=== PATIENT | female | born 1965 | race Hispanic/Latino ===

== ENCOUNTER 2019-03-25 12:26 | Outpatient (CLI) | payer OTHER ==
--- NOTE | 2019-03-26 10:52 | Mammography Report ---
BILATERAL DIGITAL DIAGNOSTIC MAMMOGRAM WITH CAD -- 03/25/2019 LEFT COMPLETE BREAST ULTRASOUND INDICATION: Left breast pain. TECHNIQUE: Digital bilateral mammographic imaging was performed. Spot compression views were obtaine d. Complete ultrasound of all four (4) quadrants was performed. This examination was interpreted with the benefit of Computer-Aided Detection (CAD) analysis. COMPARISON: 10/07/2015 bilateral screening mammogram FINDINGS: Breast Density: The breasts are heterogeneously dense, which may obscure small masses. MAMMOGRAPHIC FINDINGS: There is no evidence of dominant mass, suspicious calcifications or architectu ral distortion in either breast. ULTRASOUND FINDINGS: Complete sonographic evaluation of all 4 quadrants and retroareolar region was p erformed. Ultrasound demonstrated no mass, cyst or shadowing. IMPRESSION: Negative bilateral mammogram and negative left breast ultrasound. No explanation for left breast pain. Follow up recommendation: Routine yearly BI-RADS Category 1: Negative. A "normal" or negative report should not discourage follow up or biopsy of a clinically significant f inding. A written summary of these findings will be mailed to the patient. The patient will be entered into a mammography reporting system which will generate a reminder letter for the patient's next appointmen t at the appropriate interval. According to the [employer], yearly mammograms are recommended starting at age 40 and continuing as long as a woman is in good health. Breast MRI is recommended for women with an randi roximately 20-25% or greater lifetime risk of breast cancer, including women with a strong family his tory of breast or ovarian cancer and women who have been treated for Hodgkin's disease. Signer Name: Arnold Gallardo MD Signed: 03/26/2019 10:47 AM Workstation Name: [id number]
== END 2019-03-25 12:27 | disposition home or self-care (01) ==
LOC: SPVWC 12:26
PROVIDERS: ATTEND Obstetrics & Gynecology
DX: N64.4 Mastodynia (principal)
CPT/HCPCS: 77066